=== PATIENT | male | born 1995 | race Caucasian/White ===

== ENCOUNTER 2021-05-01 16:08 | Emergency (ER) | payer SELFPAY ==
[2021-05-01 16:16] VITALS: BP 122/74
[2021-05-01] MEDS ORDERED: KETOROLAC 30 MG/1 ML INJ IV ONE (16:43)
[2021-05-01 17:24] LABS: Basophils % (Auto) 0.4 % (0.0-1.8); Eosinophils % (Auto) 0.5 % (0.0-4.3); Hematocrit 45.7 % (35.5-45.6); Hemoglobin 15.5 gm/dl (11.8-15.2); Lymphocytes # (Auto) 2.2 K/mm3 (1.2-5.4); Lymphocytes % (Auto) 24.6 % (13.4-35.0); Mean Corpuscular HGB Conc 34 % (32-34); Mean Corpuscular Volume 91 fl (84-94); Monocytes # (Auto) 0.7 K/mm3 (0.0-0.8); Monocytes % (Auto) 7.6 % (0.0-7.3); Platelet Count 192 K/mm3 (140-440); Red Blood Count 5.02 M/mm3 (3.65-5.03); Red Cell Distribution Width 12.9 % (13.2-15.2)
--- NOTE | 2021-05-01 17:33 | XRay Report ---
CHEST 2 VIEWS INDICATION / CLINICAL INFORMATION: Chest Pain. COMPARISON: None available. FINDINGS: SUPPORT DEVICES: None. HEART / MEDIASTINUM: No significant abnormality. LUNGS / PLEURA: No significant pulmonary or pleural abnormality. No pneumothorax. ADDITIONAL FINDINGS: No significant additional findings. IMPRESSION: 1. No acute findings. Signer Name: Don Olsen MD Signed: 05/01/2021 5:28 PM Workstation Name: [id number]
[2021-05-01 17:41] LABS: Alanine Aminotransferase 154 units/L (7-56); Albumin 4.5 g/dL (3.9-5); Blood Urea Nitrogen 12 mg/dL (9-20); Calcium 9.4 mg/dL (8.4-10.2); Hemolysis Index 8
[2021-05-01 17:42] LABS: BUN/Creatinine Ratio 17
--- NOTE | 2021-05-01 17:45 | XRay Report ---
Cervical spine, 3 views HISTORY: Pain COMPARISON: None FINDINGS: Straightening of normal cervical lordosis. Cervical spinal alignment is normal. Vertebral body height s are maintained. No evidence of fracture. Mild disc space height loss at C5-C6 and C6-C7. Prevertebr al soft tissues are within normal limits. Visualized lung apices are clear. IMPRESSION: Mild multilevel cervical spondylosis at C5-C6 and C6-C7. No acute process. Signer Name: Julián Sharp MD Signed: 05/01/2021 5:41 PM Workstation Name: [id number]
--- NOTE | 2021-05-01 18:02 | Emergency Department Report ---
ED Chest Pain HPI - General Chief Complaint: Chest Pain Stated Complaint: CHEST/LT SIDE PAIN Time Seen by Provider: 05/01/21 16:24 Source: patient Mode of arrival: Ambulatory Limitations: No Limitations - History of Present Illness Initial Comments: pt reports dull, aching pain in chest, tingeling in left arm, not feeling well MD Complaint: chest pain -: Gradual, days(s) Onset: during rest Pain Location: left chest Pain Radiation: LUE, back Severity scale (0 -10): 5 Quality: aching Consistency: intermittent Improves With: nothing - Related Data Previous Rx's Medication Instructions Recorded Last Taken Type Cyclobenzaprine HCl [Flexeril 5 MG 5 mg PO TID #14 tab 05/01/21 Unknown Rx TAB] Allergies Allergy/AdvReac Type Severity Reaction Status Date / Time No Known Allergies Allergy Verified 05/01/21 16:16 Heart Score - HEART Score History: Slightly suspicious EKG: Normal Age: < 45 Risk factors: No known risk factors Troponin: < normal limit HEART Score: 0 - EKG Read Time Time EKG Completed: 18:01 EKG Read Time: 18:01 ED Review of Systems ROS: Stated complaint: CHEST/LT SIDE PAIN Other details as noted in HPI Constitutional: denies: chills, fever Eyes: denies: eye pain, eye discharge, vision change ENT: denies: ear pain, throat pain Respiratory: denies: cough, shortness of breath, wheezing Cardiovascular: denies: chest pain, palpitations Endocrine: no symptoms reported Gastrointestinal: denies: abdominal pain, nausea, diarrhea Genitourinary: denies: urgency, dysuria Musculoskeletal: denies: back pain, joint swelling, arthralgia Skin: denies: rash, lesions Neurological: denies: headache, weakness, paresthesias Psychiatric: denies: anxiety, depression Hematological/Lymphatic: denies: easy bleeding, easy bruising ED Past Medical Hx - Past Medical History Previous Medical History?: No - Surgical History Past Surgical History?: No - Medications Home Medications: Home Medications Medication Instructions Recorded Confirmed Last Taken Type Cyclobenzaprine HCl [Flexeril 5 MG 5 mg PO TID #14 tab 05/01/21 Unknown Rx TAB] ED Physical Exam - General Limitations: No Limitations ED Course Vital Signs 05/01/21 05/01/21 16:14 16:49 Temperature 98.2 F Pulse Rate 64 Respiratory 14 18 Rate Blood Pressure 122/74 O2 Sat by Pulse 98 Oximetry - Reevaluation(s) Reevaluation #1: 05/01/21 18:01 work up negative ., vss , no distress ED Medical Decision Making - Lab Data Result diagrams: 05/01/21 16:42 05/01/21 16:42 Critical care attestation.: If time is entered above; I have spent that time in minutes in the direct care of this critically ill patient, excluding procedure time. ED Disposition Clinical Impression: Cervical radiculopathy Disposition: 01 HOME / SELF CARE / HOMELESS Is pt being admited?: No Does the pt Need Aspirin: No Condition: Stable Instructions: Radicular Pain, Neuropathic Pain, Cervical Radiculopathy, Cervical Radiculopathy, [id number]
--- NOTE | 2021-05-02 10:27 | Electrocardiograph Report ---
[facility] Test Date: 2021-05-01 Test Time: 17:19:52 Pat Name: ARIELLE RODRIGUEZ Department: Room: Gender: M Educational Paraprofessional: GP : [id number] Requested By: ROBYN HAYES Order Number: [id number] Reading MD: Uri Interiano Measurements Intervals [place] Rate: 51 P: 30 TX: 155 QRS: 77 QRSD: 100 T: 33 QT: 430 QTc: 397 Interpretive Statements Sinus rhythm No previous ECG available for comparison Electronically Signed On 05-02-2021 10:27:10 EST by Uri Interiano
== END 2021-05-01 17:05 | disposition home or self-care (01) ==
LOC: ED 16:08
DX: M54.12 Radiculopathy, cervical region (principal); R07.89 Other chest pain; Z79.899 Other long term (current) drug therapy
CPT/HCPCS: 36415; 71046; 72040; 80053; 83690; 84484; 85025; 93005; 96374; 99284; J1885